=== PATIENT | male | born 1985 | race Caucasian/White ===

== ENCOUNTER 2021-07-04 09:38 | Outpatient (RCR) | payer MEDICAID, SELFPAY ==
[2021-07-04 10:05] VITALS: BP 142/76; PULSE 75; RESP 18; TEMP 35.9; O2SAT 98
[2021-07-04] MEDS: diphenhydrAMINE HCl CAP 25 MG CAPSULE PO (10:13)
[2021-07-04] MEDS: FAMOTIDINE 20 MG TABLET PO (10:13)
[2021-07-04] MEDS: ACETAMINOPHEN 325 MG TABLET 650 MG PO (10:14)
[2021-07-04 11:07] VITALS: BP 150/93; PULSE 81; O2SAT 100
--- NOTE | 2021-07-04 11:12 | PC.NURSE ---
Patient with hives to the neck on the left side and behind the right ear. Benadryl 25 mg IVP given. Vital signs stable with a slight elevation of the blood pressure. Infusion stopped at 1100.
[2021-07-04 11:24] VITALS: BP 151/98
[2021-07-04 11:36] VITALS: BP 141/91
[2021-07-04 11:43] VITALS: BP 138/78
--- NOTE | 2021-07-04 11:48 | PC.NURSE ---
Infusion resumed at 50 ml/hr. Hives are much improved and no further hives have developed. Dr Villa gave order to resume the infusion.
--- NOTE | 2021-07-04 12:34 | PC.NURSE ---
Infusion continues without any further complications. Rate has been continued at 50 ml/hr.
[2021-07-04 13:05] VITALS: BP 121/86; PULSE 74; O2SAT 99
--- NOTE | 2021-07-05 11:20 | PC.NURSE ---
Called patient to follow-up regarding COVID antibody infusion yesterday. Patient states he is feeling much better and denies any side effects at this time.
== END 2021-07-04 15:31 ==
LOC: AMCINF 09:38
DX: Z23 Encounter for immunization (principal); U07.1 COVID-19
CPT/HCPCS: A9270; M0245; Q0245